=== PATIENT | female | born 1950 | race African-American/Black ===

== ENCOUNTER 2016-11-15 08:09 | Emergency (ER) | payer OTHER ==
[~2016-11-15] VITALS: Ht 157.5 cm; Wt 87.0 kg
[~2016-11-15 08:09] MED LIST: ASPI325T PO; CENTTAB9 PO; COZA50TA PO; DIPH25 PO; FLON0.053; LORA0.5T PO; METO25 PO; NASA0.0521; OMEP20TA PO; ONDA1TAB16 PO; SERT25TA83 PO
[2016-11-15 08:20] VITALS: BP 168/84; PULSE 78; RESP 16; TEMP 98.6; O2SAT 98
[2016-11-15] MEDS ORDERED: LOSA100T PO (09:07)
[2016-11-15] MEDS ORDERED: MONT10TA2 PO (09:07)
[2016-11-15] MEDS ORDERED: DIPH25CA PO (09:07)
[2016-11-15] MEDS ORDERED: METO50TA PO (09:07)
[2016-11-15] MEDS ORDERED: LORA-373 PO (09:07)
[2016-11-15] MEDS ORDERED: OMEP20TA PO (09:07)
[2016-11-15] MEDS ORDERED: IBUPROFEN 400 MG TAB PO ONE (09:15)
--- NOTE | 2016-11-15 09:58 | RADRPT ---
EXAM DATE/TIME: 11/15/2016 09:21 [facility] COMPARISON: No previous studies available for comparison. INDICATIONS : Right wrist pain post fall last night. MEDICAL HISTORY : Hypertension. Gastroesophageal reflux disease. Renal calculi. Arthritis. Diabetic. A-fib. SURGICAL HISTORY : Tubal ligation. Cholecystectomy. Umbilical hernia repair. Cardiac ablation. Thyroid biopsy. Hysterect marifer. ENCOUNTER: Initial ACUITY: 2 days PAIN SCORE: 5/10 LOCATION: Right wrist. FINDINGS: Three view examination of the right wrist demonstrates no soft tissue swelling, dislocation, or fract ure. The carpal bones are in normal alignment. The joint spaces are maintained. Bony mineralizatio n is normal. CONCLUSION: Negative for fracture or dislocation. Follow up in 7-10 days is suggested if symptoms persist. Efe Mccarthy MD FACR on November 15, 2016 at 9:56 Board Certified Radiologist. This report was verified electronically.
--- NOTE | 2016-11-15 10:23 | RADRPT ---
EXAM DATE/TIME: 11/15/2016 09:21 [facility] COMPARISON: No previous studies available for comparison. INDICATIONS : Lumbar spine pain post fall last night. MEDICAL HISTORY : Hypertension. Gastroesophageal reflux disease. Renal calculi. A-fib. Arthritis. Diabetic. SURGICAL HISTORY : Tubal ligation. Umbilical hernia repair. Cholecystectomy. Cardiac ablation. Hysterectomy. Thyroid bio psy. ENCOUNTER: Initial ACUITY: 2 days PAIN SCORE: 5/10 LOCATION: lumbar spine FINDINGS: A complete lumbar spine series shows normal alignment. Normal bone mineralization. Mild anterior oste ophyte production seen at the thoracolumbar junction and upper lumbar spine. Disc space heights are r elatively well-preserved except at L5-S1 where there is mild disc space narrowing and anterior osteop hyte production. No compression fracture is observed. Paraspinal soft tissues are unremarkable. Julieta cystectomy clips noted. CONCLUSION: Degenerative changes without acute abnormality. Johnnie Levy Jr., MD on November 15, 2016 at 10:21 Board Certified Radiologist. This report was verified electronically.
--- NOTE | 2016-11-15 10:24 | PD ---
HPI Chief Complaint: Fall Time Seen by Provider: 09:05 Travel History International Travel<30 days: No Contact w/Intl Traveler<30days: No Traveled to known affect area: No History of Present Illness HPI Patient is a 65 year old female who comes in complaining of pain to her right buttocks after a slip and fall yesterday. She says she slipped on the wet floor and fell on her backside. She says she thinks she put her right arm down because she has some pain in her right wrist. She denies any shoulder pain or other injuries. She denies hitting her head or any LOC. She has not taken anything for pain. She says she was able to get up and walk afterwards without difficulty. [facility] Past Medical History Arthritis: Yes Asthma: No Atrial Fibrillation: Yes (cardiac ablation-12/2011) Autoimmune Disease: No Blood Disorders: No Anxiety: Yes Depression: No Heart Rhythm Problems: No Cancer: No Cardiovascular Problems: Yes (A-FIB) High Cholesterol: No Chemotherapy: No Chest Pain: No Congestive Heart Failure: No COPD: No Cerebrovascular Accident: No Diabetes: Yes (diet controlled) Patient Takes Glucophage: No Diminished Hearing: No Endocrine: No Gastrointestinal Disorders: No GERD: Yes Glaucoma: No Genitourinary: Yes Headaches: No Hepatitis: No Hiatal Hernia: No Hypertension: Yes Immune Disorder: No Kidney Stones: Yes Musculoskeletal: Yes Neurologic: Yes Psychiatric: Yes Reproductive: Yes Integumentary: No Immunizations Current: Yes Myocardial Infarction: No Radiation Therapy: No Renal Failure: No Seizures: No Sickle Cell Disease: No Sleep Apnea: No Thyroid Disease: No Ulcer: No Influenza Vaccination: No ?: Not Menopausal: Yes : 5 Para: 4 Miscarriage: 1 : 0 Tubal Ligation: Yes Past Surgical History Abdominal Surgery: Yes (UMBILICAL HERNIA REPAIR) AICD: No Cardiac Surgery: Yes (ABLATION) Cholecystectomy: Yes Ear Surgery: No Endocrine Surgery: Yes (THYROID NEEDLE BIOPSY 04/25/2013) Eye Surgery: No Genitourinary Surgery: No Gynecologic Surgery: Yes (TUBAL LIGATION, HYSTERECTOMY) Hysterectomy: Yes Joint Replacement: No Neurologic Surgery: No Oral Surgery: No Pacemaker: No Thoracic Surgery: No Other Surgery: Yes Social History Alcohol Use: No Tobacco Use: No Substance Use: No Allergies-Medications (Allergen,Severity, Reaction): Coded Allergies: No Known Allergies (Verified , 11/15/16) Reported Meds & Prescriptions Reported Meds & Active Scripts Active Reported Diphenhydramine (Diphenhydramine HCl) 25 Mg Cap 25 Mg PO HS PRN Singulair (Montelukast Sodium) 10 Mg Tab 10 Mg PO HS Omeprazole 20 Mg Tab 20 Mg PO DAILY Metoprolol Tartrate 50 Mg Tab 50 Mg PO DAILY Losartan (Losartan Potassium) 100 Mg Tab 100 Mg PO DAILY Lorazepam 0.5 Mg Tab 0.5 Mg PO HS PRN Review of Systems General / Constitutional: No: Fever, Chills Eyes: No: Blurred Vision HENT: No: Headaches, Lightheadedness Cardiovascular: No: Chest Pain or Discomfort Respiratory: No: Shortness of Breath Gastrointestinal: No: Nausea, Vomiting Genitourinary: No: Oliguria, Dribbling, Incontinence Musculoskeletal: Positive: Pain, No: Edema Skin: No Rash, No Change in Pigmentation Neurologic: No: Weakness, Dizziness, Syncope Physical Exam Narrative GENERAL: Awake and alert, in no acute distress. SKIN: Focused skin assessment warm/dry. No bruising or wounds. HEAD: Atraumatic. Normocephalic. EYES: Pupils equal and round. No scleral icterus. No injection or drainage. ENT: Mucous membranes pink and moist. CARDIOVASCULAR: Regular rate and rhythm. No murmur appreciated. RESPIRATORY: No accessory muscle use. Clear to auscultation. Breath sounds equal bilaterally. MUSCULOSKELETAL: No obvious deformities. No clubbing. No cyanosis. No edema. No tenderness to the spine. Tender to palpation of the right buttocks. Pain with straight leg raise on the right. NEUROLOGICAL: Awake and alert. No obvious cranial nerve deficits. Motor grossly within normal limits. Normal speech. No saddle anesthesia. Data Data Last Documented VS Vital Signs Date Time Temp Pulse Resp B/P (MAP) Pulse Ox O2 Delivery O2 Flow Rate FiO2 11/15/16 10:29 69 18 144/66 (92) 97 Room Air 11/15/16 08:20 98.6 Orders Orders Spine, Lumbar Comp W/Obliq (11/15/16 ) Sacrum And Coccyx (11/15/16 ) Wrist, Complete ([id number]) (11/15/16 ) Ibuprofen (Motrin) (11/15/16 09:15) Ed Discharge Order (11/15/16 10:38) MDM Medical Decision Making Medical Screen Exam Complete: Yes Emergency Medical Condition: Yes Differential Diagnosis sacral fracture vs muscle strain vs coccyx fracture Narrative Course Patient is a 65-year-old female comes in complaining of buttocks pain after she slipped and fell yesterday. Exam shows pain to buttocks area. X-ray of the lumbar spine, coccyx and sacrum show no acute abnormalities. Given ibuprofen for pain. Advised to take Tylenol or ibuprofen as needed for pain. Advised follow-up with her doctor as needed. Advised to return to the ED as needed for any worsening symptoms. Diagnosis Primary Impression: Hip strain Qualified Codes: S76.011A - Strain of muscle, fascia and tendon of right hip, initial encounter Patient Instructions: General Instructions, Muscle Strain (ED) Additional Instructions: Take Tylenol or ibuprofen as needed for pain. Follow-up with her doctor. Return to the ED as needed for any worsening symptoms. Disposition: 01 DISCHARGE HOME Condition: Stable Paulette King MD Nov 15, 2016 10:24
--- NOTE | 2016-11-15 10:24 | RADRPT ---
EXAM DATE/TIME: 11/15/2016 09:21 [facility] COMPARISON: No previous studies available for comparison. INDICATIONS : Sacral/coccyx pain post fall last night. MEDICAL HISTORY : Hypertension. Gastroesophageal reflux disease. Renal calculi. A-fib. Arthritis. Diabetic. SURGICAL HISTORY : Tubal ligation. Umbilical hernia repair. Hysterectomy. Cardiac ablation. Hysterectomy. Thyroid biopsy . ENCOUNTER: Initial ACUITY: 2 days PAIN SCORE: 5/10 LOCATION: sacrum/coccyx. FINDINGS: Two-view examination of the sacrum and coccyx demonstrates no evidence of fracture or malalignment. The sacral ala and foramina appear symmetric and intact. The coccyx appears unremarkable. The preve rtebral soft tissues are within normal limits. CONCLUSION: Unremarkable examination of the sacrum and coccyx. Johnnie Levy Jr., MD on November 15, 2016 at 10:22 Board Certified Radiologist. This report was verified electronically.
[2016-11-15 10:29] VITALS: BP 144/66; PULSE 69; RESP 18; O2SAT 97
== END 2016-11-15 10:55 | disposition home or self-care (01) ==
LOC: PHED 08:09
DX: S76.011A Strain of muscle, fascia and tendon of right hip, initial encounter (principal); I48.91 Unspecified atrial fibrillation; E11.9 Type 2 diabetes mellitus without complications; I10 Essential (primary) hypertension; M19.90 Unspecified osteoarthritis, unspecified site; W01.0XXA Fall on same level from slipping, tripping and stumbling without subsequent striking against object, initial encounter; Z87.442 Personal history of urinary calculi
CPT/HCPCS: 72110; 72220; 73110; 99284